=== PATIENT | male | born 1995 | race Caucasian/White ===

== ENCOUNTER → 2021-10-24 | Outpatient (REF) | LOC: M PLAIMG 08:15 | PROVIDERS: ATTEND Internal Medicine | DX: Z00.00 Encounter for general adult medical examination without abnormal findings (principal) ==

== ENCOUNTER → 2022-01-05 | Outpatient (CLI) | payer OTHER | LOC: M PLAIMG 10:12 | PROVIDERS: ATTEND Family Medicine | DX: M54.50 Low back pain, unspecified (principal) ==

== ENCOUNTER 2022-01-17 21:54 | Emergency (ER) | payer OTHER ==
[~2022-01-17] VITALS: Ht 172.7 cm; Wt 80.5 kg
[2022-01-18 02:21] VITALS: BP 134/79
== END 2022-01-18 02:27 | disposition left against medical advice (07) ==
LOC: M ED 21:54
DX: Z53.21 Procedure and treatment not carried out due to patient leaving prior to being seen by health care provider (principal)

== ENCOUNTER → 2022-10-25 | Outpatient (CLI) | payer OTHER | LOC: M PLARAD 13:01 | PROVIDERS: ATTEND Podiatrist Foot & Ankle Surgery | DX: S93.402A Sprain of unspecified ligament of left ankle, initial encounter (principal) ==

== ENCOUNTER 2023-02-20 14:25 | Emergency (ER) | payer OTHER ==
[~2023-02-20] VITALS: Ht 170.2 cm; Wt 76.9 kg
[2023-02-20 14:26] VITALS: TEMP 98.2
[2023-02-20] MEDS ORDERED: CIPR7.5D2 AU (16:34)
[2023-02-20] MEDS ORDERED: IBUP80TA PO (17:38)
[2023-02-20] MEDS ORDERED: AMOX875T2 PO (17:38)
[2023-02-20 17:45] VITALS: BP 149/72; O2SAT 99
== END 2023-02-20 17:46 | disposition home or self-care (01) ==
LOC: M ED 14:25
DX: H60.91 Unspecified otitis externa, right ear (principal); H66.91 Otitis media, unspecified, right ear

== ENCOUNTER → 2023-02-28 | Outpatient (CLI) | payer OTHER ==
[~2023-02-28] MED LIST: AMOX875T2 PO; CIPR7.5D2 AU; IBUP80TA PO
== END ==
LOC: M PLAIMG 13:20
PROVIDERS: ATTEND Nurse Practitioner Family
DX: M54.50 Low back pain, unspecified (principal)

== ENCOUNTER 2024-01-06 23:39 | Emergency (ER) | payer OTHER ==
[~2024-01-06] VITALS: Ht 170.2 cm; Wt 80.0 kg
[2024-01-06 23:52] VITALS: BP 141/74; TEMP 97.7; O2SAT 99
== END 2024-01-07 02:21 | disposition left against medical advice (07) ==
LOC: M ED 23:39 → EDBD 23:39 → M ED 01-07 02:21
DX: Z53.21 Procedure and treatment not carried out due to patient leaving prior to being seen by health care provider (principal)